=== PATIENT | male | born 1985 | race Caucasian/White ===

== ENCOUNTER 2017-10-01 08:19 | Day surgery (SDC) | payer OTHER ==
[~2017-10-01] VITALS: Ht 185.4 cm; Wt 78.5 kg
[~2017-10-01 08:19] MED LIST: MULT1TAB10 PO
[2017-10-01] MEDS ORDERED: LR 1,000 ML IV ONE (08:30)
[2017-10-01] MEDS ORDERED: LIDOCAINE 1% MDV 20ML VIAL SQ PRN (08:30)
[2017-10-01] MEDS ORDERED: BUPIVACAINE/EPIN 0.25% 30 ML VIAL As Ordered ONE (10:53)
[2017-10-01] MEDS ORDERED: LIDOCAINE 2% INJ 100 MG/5 ML SDV (FOR ANES.) As Ordered ONE (11:18)
[2017-10-01] MEDS ORDERED: PROPOFOL 200 MG/20 ML VIAL As Ordered ONE (11:18)
[2017-10-01] MEDS ORDERED: MIDAZOLAM INJ 2 MG/2 ML VIAL (J2250) As Ordered ONE (11:18)
[2017-10-01] MEDS ORDERED: ROCURONIUM BROMIDE 50 MG/5 ML VIAL/SYRINGE As Ordered ONE ×2 (11:18→11:51)
[2017-10-01] MEDS ORDERED: fentaNYL 250 MCG/5 ML INJECTION (J3010) As Ordered ONE (11:18)
[2017-10-01] MEDS ORDERED: ePHEDrine SULFATE 25 MG/5 ML(5MG/ML) SYRINGE As Ordered ONE (11:20)
[2017-10-01] MEDS ORDERED: ONDANSETRON 4MG/2ML VIAL (J2405) As Ordered ONE (11:27)
[2017-10-01] MEDS ORDERED: GLYCOPYRROLATE INJ 0.2 MG/ML 2 ML VIAL As Ordered ONE (11:27)
[2017-10-01] MEDS ORDERED: KETOROLAC 60 MG/2 ML VIAL (J1885) As Ordered ONE (11:27)
[2017-10-01] MEDS ORDERED: NEOSTIGMINE 10 MG/10 ML VIAL (J2710) As Ordered ONE (11:27)
[2017-10-01] MEDS ORDERED: dexameTHASONE 4 MG/ML 1ML VIAL (J1100) As Ordered ONE (11:45)
[2017-10-01] MEDS ORDERED: ONDANSETRON 4MG/2ML VIAL (J2405) IV PRN (13:00)
[2017-10-01] MEDS ORDERED: MEPERIDINE INJ 25 MG/ML VIAL (J2175) IV PRN (13:00)
[2017-10-01] MEDS ORDERED: LR 1,000 ML IV SCH (13:00)
[2017-10-01] MEDS ORDERED: fentaNYL 100 MCG/2 ML INJECTION (J3010) IV PRN (13:00)
[2017-10-01] MEDS ORDERED: NORCO, ANEXSIA 5/325MG TABLET (HYDROcodone/ACETAMINOPHEN) PO PRN (13:00)
[2017-10-01] MEDS ORDERED: PERCOCET 5MG/325MG TAB PO PRN (13:00)
[2017-10-01 15:00] VITALS: BP 110/65
--- NOTE | 2017-10-01 19:50 | RO ---
DATE OF PROCEDURE: 10/01/2017 PREOPERATIVE DIAGNOSIS: Right lower hernia. POSTOPERATIVE DIAGNOSIS: Right lower hernia. PROCEDURE: Robotic-assisted right inguinal hernia repair. SURGEON: Vamshi Duong DO LAMINATION TECHNICIAN: Radha Flores ANESTHESIA: General. ESTIMATED BLOOD LOSS: 5 mL COMPLICATIONS: None. INDICATIONS FOR THE PROCEDURE: The patient is a 31-year-old male who presents with right groin pain. After careful history and physical he was found to have a large right inguinal hernia. Recommended to proceed with robotic-assisted right, possible open hernia repair. The risks and benefits of the procedure not limited to but including bleeding, infection, hernia formation, hernia recurrence, damage to surrounding structures, and need for further surgery were discussed in detail with the patient in detail and informed was obtained and the procedure was planned. DESCRIPTION OF PROCEDURE: The patient was brought back to operating room 7 and after sufficient sedation the abdomen was sterilely prepped and draped. A Núñez catheter was placed. Next a time-out was done to confirm proper patient and proper procedure. Following that an 8 mm supraumbilical incision was made. Veress needle was inserted and the abdomen was insufflated to 50 mmHg. Next, a Veress needle was removed and a 5 mm OptiVu port was used to gain access to the abdomen. Two 8 mm robotic ports were placed in the right and left abdomen. The 5 mm port was then removed and replaced with an 8 mm robotic camera port. Robot was then docked to the ports. Next, from the console the peritoneum was incised in the right lower quadrant in a curvilinear fashion. Peritoneum was carefully dissected free from all of the cord structures both medially, laterally and posteriorly. Once this was completely dissected free, there was a small direct and indirect hernia that were both identified. The Bard 3-D Max mesh was then placed inside the preperitoneal space. It was sutured to the pubic symphysis using Vicryl suture. The peritoneum was then closed over top of the mesh using a running V-Loc suture. Once this was completed, the abdomen was desufflated. Skin incision closed with #4-0 Vicryl subcuticular sutures. The abdomen was cleaned and dried. Steri-Strips, 4x4 and tape were applied thus ending procedure.
== END 2017-10-01 15:30 | disposition home or self-care (01) ==
LOC: M SDC 08:19
PROVIDERS: ATTEND Surgery
DX: K40.90 Unilateral inguinal hernia, without obstruction or gangrene, not specified as recurrent (principal)
CPT/HCPCS: 49650; C1781; J0690; J1100; J1885; J2250; J2405; J2710; J3010

== ENCOUNTER → 2019-05-11 | Outpatient (REF) | payer BC | LOC: M SFHCLERA 09:40 | PROVIDERS: ATTEND Nurse Practitioner Family | DX: J02.9 Acute pharyngitis, unspecified (principal) ==